=== PATIENT | male | born 1955 | race Caucasian/White ===

== ENCOUNTER 2024-06-02 01:20 | Emergency (ER) | payer OTHER, MEDICAID ==
[~2024-06-02] VITALS: Ht 172.7 cm; Wt 85.0 kg
[2024-06-02 01:32] VITALS: O2SAT 96
[2024-06-02] MEDS ORDERED: SODIUM CHLORIDE 0.9% 1,000 ML IV SCH (02:00)
[2024-06-02 02:10] LABS: BASOPHILS % 0.6 % (0.0-2.0); EOSINOPHILS % 3.7 % (0.0-5.0); HEMATOCRIT. 42.7 % (42.0-52.0); LYMPHOCYTES % 34.9 % (20.0-50.0); MEAN CORPUSCULAR HEMOGLOBIN 30.9 pg (28.0-32.0); MEAN CORPUSCULAR HGB CONC 32.7 g/dL (31.0-37.0); MEAN CORPUSCULAR VOLUME 94.5 fL (80.0-94.0); MEAN PLATELET VOLUME 9.4 fl (7.4-10.4); MONOCYTES % 6.2 % (2.0-8.0); NEUTROPHILS % 54.6 % (40.0-76.0); PLATELET 245 x1000/uL (130-400); RED BLOOD CELL COUNT 4.52 mill/uL (4.7-6.1); RED CELL DISTRIBUTION WIDTH 15.1 % (11.6-14.6); WHITE BLOOD COUNT 12.8 x1000/uL (4.5-11.0)
[2024-06-02 02:19] LABS: POTASSIUM 3.7 mEq/L (3.5-5.1)
[2024-06-02 02:20] LABS: CALCIUM 8.6 mg/dL (8.7-10.4)
[2024-06-02 02:25] LABS: CREATININE 1.4 mg/dL (0.6-1.3)
[2024-06-02] MEDS: DEXAMETHASONE 10 MG/ML VIAL IV ONE (03:17)
[2024-06-02] MEDS: DIPHENHYDRAMINE 50MG/ML VIAL IV ONE (03:18)
[2024-06-02] MEDS: FAMOTIDINE 20MG/2ML VIAL IV ONE (03:18)
[2024-06-02] MEDS ORDERED: EPIN0.3P3 IM (04:51)
[2024-06-02] MEDS ORDERED: P20 MT (04:51)
[2024-06-02 05:13] VITALS: BP 128/72; PULSE 83; RESP 16; TEMP 36.61404; O2SAT 95
== END 2024-06-02 05:25 | disposition home or self-care (01) ==
LOC: ER 01:20
DX: T78.2XXA Anaphylactic shock, unspecified, initial encounter (principal); Z98.890 Other specified postprocedural states; X58.XXXA Exposure to other specified factors, initial encounter
CPT/HCPCS: 99284; 96374; 96375; 71045; 80048; 85025; 36415; J1100; J1200; J3490